=== PATIENT | male | born 1990 | race Caucasian/White ===

== ENCOUNTER 2019-09-27 11:05 | Emergency (ER) | payer MEDICAID ==
[~2019-09-27] VITALS: Ht 165.1 cm; Wt 83.0 kg
[2019-09-27 14:56] VITALS: BP 111/71
== END 2019-09-27 17:41 | disposition home or self-care (01) ==
LOC: ER 11:25
DX: S00.212A Abrasion of left eyelid and periocular area, initial encounter (principal); R51 Headache; Z98.890 Other specified postprocedural states; W17.89XA Other fall from one level to another, initial encounter; Y93.89 Activity, other specified; Y92.810 Car as the place of occurrence of the external cause
CPT/HCPCS: 70486; 71100; 99284